=== PATIENT | female | born 1965 | race Caucasian/White ===

== ENCOUNTER 2017-08-27 17:46 | Emergency (ER) | payer BC ==
[2017-08-27 18:54] VITALS: BP 139/78
--- NOTE | 2017-08-27 19:07 | UC ---
Respiratory Complaint HPI - HPI Summary HPI Summary: 52F presents with dry cough for a week. She denies any chest pain or SOB. She denies any fever. She denies any sore throat. She denies any sinus congestion. She denies any any abdominal pain, nausea, or vomiting. She has not tried anything. she denies any history of resp issues and she does not smoke. - History of Current Complaint Chief Complaint: UCRespiratory Stated Complaint: FLU SYMPTOMES, RESPIRATORY Time Seen by Provider: 08/27/17 18:55 Hx Last Menstrual Period: APPROX 4 MS AGO Pain Intensity: 0 - Allergies/Home Medications Allergies/Adverse Reactions: Allergies Allergy/AdvReac Type Severity Reaction Status Date / Time No Known Allergies Allergy Verified 08/27/17 18:52 Home Medications: Home Medications Acetaminophen [Acetaminophen Extra Stren] 500 mg PO Q4H PRN 08/27/17 [History Confirmed 08/27/17] PMH/Surg Hx/FS Hx/Imm Hx Endocrine History: Other Other Endocrine History: no DM Respiratory History: Other Other Respiratory History: no asthma - Surgical History Surgical History: None - Family History Known Family History: Negative: Respiratory Disease - Social History Alcohol Use: Occasionally Substance Use Type: None Smoking Status (MU): Never Smoked Tobacco Review of Systems Constitutional: Negative Respiratory: Cough Cardiovascular: Negative All Other Systems Reviewed And Are Negative: Yes Physical Exam Triage Information Reviewed: Yes Appearance: Well-Appearing Vital Signs: Initial Vital Signs Temp 99.8 F 08/27/17 18:48 Pulse 86 08/27/17 18:48 Resp 16 08/27/17 18:48 BP 139/78 08/27/17 18:48 Pulse Ox 98 08/27/17 18:48 Vital Signs Reviewed: Yes ENT: Positive: Normal ENT inspection, Pharynx normal, TMs normal Neck: Positive: Supple, Nontender, No Lymphadenopathy Respiratory: Positive: Lungs clear, Normal breath sounds Cardiovascular: Positive: RRR Abdomen Description: Positive: Nontender, Soft Bowel Sounds: Positive: Present Musculoskeletal Exam: Normal Neurological Exam: Normal Psychological Exam: Normal Skin Exam: Normal UC Diagnostic Evaluation - Laboratory O2 Sat by Pulse Oximetry: 98 Respiratory Course/Dx - Course Course Of Treatment: 52F presents with dry cough for a week. She denies any chest pain or SOB. She denies any fever. She denies any sore throat. She denies any sinus congestion. She denies any any abdominal pain, nausea, or vomiting. She has not tried anything. she denies any history of resp issues and she does not smoke. on exam lungs CTA. neg egophony. will treat with tessalon, prednisone, and inhaler. will have follow up with primary about blood pressure as in pre-htn range. patient understand and agrees with plan. - Differential Dx/Diagnosis Differential Diagnosis/HQI/PQRI: Bronchitis, Influenza, Lower Resp Infection Provider Diagnoses: bronchitis Discharge - Discharge Plan Condition: Good Disposition: HOME Prescriptions: Albuterol HFA INHALER* [Ventolin HFA Inhaler*] 1 puff INH Q4H PRN #1 mdi PRN Reason: Cough Benzonatate CAP* [Tessalon 100 MG CAP*] 100 mg PO TID #21 cap predniSONE TAB* [Deltasone TAB*] 40 mg PO DAILY #10 tab Patient Education Materials: Acute Bronchitis (ED) Referrals: [facility] [Outside] Additional Instructions: Use Tessalon three times a day for cough Use inhaler one puff every 4 hours for cough as needed Take steroid once a day for 5 days Use saline in the nose Use humidifier or place warm bowls of water around the room Cough can last up to 4 weeks Follow up with primary care physician in 5 days Return to ED if develop chest pain or shortness of breath or any new or worsening symptoms
== END 2017-08-27 19:12 | disposition home or self-care (01) ==
LOC: UCCORT 17:46
DX: J40 Bronchitis, not specified as acute or chronic (principal)
CPT/HCPCS: 99202; G0463